=== PATIENT | male | born 1955 | race American Indian/Alaskan Native ===

== ENCOUNTER 2019-07-26 08:05 | Emergency (ER) | payer MEDICARE ==
[2019-07-26] MEDS ORDERED: MAGNESIUM CITRATE 300 ML ORAL LIQD PO ONE (08:57)
--- NOTE | 2019-07-26 09:02 | Emergency Department Report ---
ED General Adult HPI - General Chief complaint: Abdominal Pain Stated complaint: CONSTIPATION Time Seen by Provider: 07/26/19 08:20 Source: patient Mode of arrival: Ambulatory Limitations: No Limitations - History of Present Illness Initial comments: 64-year old male complains of no bowel movement for approximately 1 week. He is a poor historian. He does not know what medication he is on. It is possible that he is taking diltiazem. He is taking an antibiotic for a diabetic foot infection. He states that he has a debridement scheduled for Sunday. He does not complain of fever or chills. He has abdominal discomfort related to the constipation but does not complain of pain. He said no nausea no vomiting and otherwise is without complaint. He states he took a Dulcolax liquid laxative at home twice. -: days(s), week(s) Location: abdomen Quality: other (Crampy) Consistency: other (Occasional) Improves with: none Worsens with: none Associated Symptoms: denies other symptoms, other (Constipation) Treatments Prior to Arrival: other (As above) - Related Data Previous Rx's Medication Instructions Recorded Last Taken Type Apixaban [Eliquis] 5 mg PO Q12HR #60 tablet 01/22/18 Unknown Rx AtorvaSTATin [Lipitor] 20 mg PO QHS #30 tab 01/22/18 Unknown Rx Insulin NPH, Human [NovoLIN N] 10 unit SUB-Q BIDDIAB 30 Days 01/22/18 Unknown Rx units Insulin Regular, Human [HumuLIN R] See Protocol SUB-Q ACHS 30 Days 01/22/18 Unknown Rx units dilTIAZem [Cardizem] 30 mg PO Q6HR #120 tablet 01/22/18 Unknown Rx Allergies Allergy/AdvReac Type Severity Reaction Status Date / Time No Known Allergies Allergy Verified 01/18/18 22:16 ED Review of Systems ROS: Stated complaint: CONSTIPATION Other details as noted in HPI Constitutional: denies: chills, fever Eyes: denies: eye pain, eye discharge, vision change ENT: denies: ear pain, throat pain Respiratory: denies: cough, shortness of breath, wheezing Cardiovascular: denies: chest pain, palpitations Endocrine: no symptoms reported Gastrointestinal: as per HPI, constipation. denies: nausea, diarrhea Genitourinary: denies: urgency, dysuria Musculoskeletal: denies: back pain, joint swelling, arthralgia Skin: as per HPI (Diabetic foot infection right). denies: rash, lesions Neurological: denies: headache, weakness, paresthesias Psychiatric: denies: anxiety, depression Hematological/Lymphatic: denies: easy bleeding, easy bruising ED Past Medical Hx - Past Medical History Previous Medical History?: Yes Hx Congestive Heart Failure: No Hx Diabetes: Yes Hx Deep Vein Thrombosis: Yes (right leg.) Hx Asthma: No Hx COPD: No Hx HIV: Yes - Social History Smoking Status: Never Smoker Substance Use Type: None - Medications Home Medications: Home Medications Medication Instructions Recorded Confirmed Last Taken Type Apixaban [Eliquis] 5 mg PO Q12HR #60 tablet 01/22/18 Unknown Rx AtorvaSTATin [Lipitor] 20 mg PO QHS #30 tab 01/22/18 Unknown Rx Insulin NPH, Human [NovoLIN N] 10 unit SUB-Q BIDDIAB 30 Days 01/22/18 Unknown Rx units Insulin Regular, Human [HumuLIN R] See Protocol SUB-Q ACHS 30 Days 01/22/18 Unknown Rx units dilTIAZem [Cardizem] 30 mg PO Q6HR #120 tablet 01/22/18 Unknown Rx ED Physical Exam - General Limitations: No Limitations General appearance: alert, in no apparent distress - Head Head exam: Present: atraumatic, normocephalic - Eye Eye exam: Present: normal appearance. Absent: scleral icterus - ENT ENT exam: Present: mucous membranes moist - Neck Neck exam: Present: normal inspection - Respiratory Respiratory exam: Present: normal lung sounds bilaterally. Absent: respiratory distress - Cardiovascular Cardiovascular Exam: Present: regular rate, normal rhythm. Absent: systolic murmur, diastolic murmur, rubs, gallop - GI/Abdominal GI/Abdominal exam: Present: soft, normal bowel sounds. Absent: distended, tenderness, guarding, rebound, rigid - Rectal Rectal exam: Present: deferred - Extremities Exam Extremities exam: Present: other (Dressed right foot in protective shoe ) - Back Exam Back exam: Present: normal inspection - Neurological Exam Neurological exam: Present: alert, oriented X3 - Psychiatric Psychiatric exam: Present: normal affect, normal mood - Skin Skin exam: Present: warm, dry, intact, normal color. Absent: rash ED Course Vital Signs 07/26/19 07/26/19 07/26/19 08:06 08:23 08:25 Temperature 98.4 F Pulse Rate 98 H 95 H Respiratory 16 20 Rate Blood Pressure 155/77 Blood Pressure 161/97 [Left] O2 Sat by Pulse 95 100 98 Oximetry 07/26/19 07/26/19 07/26/19 08:30 08:48 09:00 Temperature Pulse Rate Respiratory Rate Blood Pressure 158/98 158/98 144/93 Blood Pressure [Left] O2 Sat by Pulse 96 97 97 Oximetry - Reevaluation(s) Reevaluation #1: Patient was given mag citrate. He had positive results. He will be taking his insulin at home. 07/26/19 11:06 ED Medical Decision Making - Lab Data Result diagrams: 07/26/19 08:55 07/26/19 08:55 Laboratory Results - last 24 hr 07/26/19 07/26/19 08:55 08:55 WBC 8.5 RBC 3.77 Hgb 10.1 L Hct 31.7 L MCV 84 MCH 27 L MCHC 32 RDW 15.7 H Plt Count 321 Lymph % (Auto) 12.7 L [place] % (Auto) 7.1 Eos % (Auto) 0.3 Baso % (Auto) 0.5 Lymph # 1.1 L [place] # 0.6 Eos # 0.0 Baso # 0.0 Seg Neutrophils % 79.4 H Seg Neutrophils # 6.7 Sodium 137 Potassium 4.8 Chloride 100.8 Carbon Dioxide 23 Anion Gap 18 BUN 12 Creatinine 1.1 Estimated GFR > 60 BUN/Creatinine Ratio 11 Glucose 297 H Calcium 9.4 - Radiology Data Radiology results: image reviewed (X-ray does show increased stool in the splenic flexure of the colon. There is no evidence of fecal impaction distally. Bowel gas pattern is normal.) Critical care attestation.: If time is entered above; I have spent that time in minutes in the direct care of this critically ill patient, excluding procedure time. ED Disposition Clinical Impression: Constipation Qualifiers: Constipation type: unspecified constipation type Qualified Code(s): K59.00 - Constipation, unspecified Hyperglycemia due to type 2 diabetes mellitus Qualifiers: Diabetes mellitus termination clerk insulin use: with chcf use Qualified Code(s): E11.65 - Type 2 diabetes mellitus with hyperglycemia; Z79.4 - care home (current) use of insulin Disposition: DC- TO HOME OR SELFCARE Is pt being admited?: No Does the pt Need Aspirin: No Condition: Stable Instructions: Diabetes Mellitus Type 2 in Adults (ED) Additional Instructions: Follow-up with your primary care physician. Take your insulin at home. Your sugar here was about 300. Referrals: PRIMARY CARE, [Primary Care Provider] - 3-5 Days [facility] [Provider Group] - 3-5 Days Time of Disposition: 11:08
--- NOTE | 2019-07-26 09:08 | XRay Report ---
ABDOMEN 1 VIEW(S) INDICATION / CLINICAL INFORMATION: pain constipation. COMPARISON: None available. FINDINGS: TUBES / LINES: None. BOWEL GAS PATTERN: No significant abnormality. FREE AIR / EXTRALUMINAL GAS: None seen. ADDITIONAL FINDINGS: Caval filter is in place. There is moderate to large amount of stool in colon grover ggesting constipation. No definite fecal impaction. IMPRESSION: 1. Constipation. Signer Name: Te Steel MD Signed: 07/26/2019 9:04 AM Workstation Name: [email or web address]
[2019-07-26 09:34] LABS: BUN/Creatinine Ratio 11; Basophils % (Auto) 0.5 % (0.0-1.8); Blood Urea Nitrogen 12 mg/dL (9-20); Calcium 9.4 mg/dL (8.4-10.2); Eosinophils % (Auto) 0.3 % (0.0-4.3); Hematocrit 31.7 % (35.5-45.6); Hemoglobin 10.1 gm/dl (11.8-15.2); Hemolysis Index 22; Lymphocytes # (Auto) 1.1 K/mm3 (1.2-5.4); Lymphocytes % (Auto) 12.7 % (13.4-35.0); Mean Corpuscular HGB Conc 32 % (32-34); Mean Corpuscular Volume 84 fl (84-94); Monocytes # (Auto) 0.6 K/mm3 (0.0-0.8); Monocytes % (Auto) 7.1 % (0.0-7.3); Platelet Count 321 K/mm3 (140-440); Red Blood Count 3.77 M/mm3 (3.65-5.03); Red Cell Distribution Width 15.7 % (13.2-15.2)
[2019-07-26 11:35] VITALS: BP 133/78
== END 2019-07-26 11:34 | disposition home or self-care (01) ==
LOC: ED 08:05
DX: K59.00 Constipation, unspecified (principal); E11.65 Type 2 diabetes mellitus with hyperglycemia; Z21 Asymptomatic human immunodeficiency virus [HIV] infection status; Z79.899 Other long term (current) drug therapy
CPT/HCPCS: 36415; 74018; 80048; 85025; 99284

== ENCOUNTER 2019-08-05 13:19 | Emergency (ER) | payer MEDICARE ==
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
[2019-08-05 21:04] VITALS: BP 147/60
== END 2019-08-05 20:05 | disposition home or self-care (01) ==
LOC: ED 13:19
DX: S12.9XXA Fracture of neck, unspecified, initial encounter (principal); E11.9 Type 2 diabetes mellitus without complications; Z86.718 Personal history of other venous thrombosis and embolism; Z21 Asymptomatic human immunodeficiency virus [HIV] infection status; Z79.4 Long term (current) use of insulin; Z79.899 Other long term (current) drug therapy; Z98.890 Other specified postprocedural states; W22.11XA Striking against or struck by driver side automobile airbag, initial encounter; V49.49XA Driver injured in collision with other motor vehicles in traffic accident, initial encounter; Y93.89 Activity, other specified; Y92.410 Unspecified street and highway as the place of occurrence of the external cause; Y99.8 Other external cause status
CPT/HCPCS: 72125; 72128; 72131